=== PATIENT | male | born 1990 | race Caucasian/White ===

== ENCOUNTER 2021-09-16 10:22 | Outpatient (CLI) | payer BC | END 2021-09-16 10:23 | disposition home or self-care (01) | LOC: LABBT 10:22 | PROVIDERS: ATTEND Internal Medicine Gastroenterology | DX: R13.10 Dysphagia, unspecified (principal); Z20.822 Contact with and (suspected) exposure to COVID-19 | CPT/HCPCS: U0003; U0005 ==

== ENCOUNTER 2021-09-21 07:33 | Day surgery (SDC) | payer BC ==
[2021-09-17 12:27] VITALS: BMI 23.0
[2021-09-21] MEDS ORDERED: Fentanyl 100 MCG/2 ML VIAL ONE (11:05)
== END 2021-09-21 12:13 | disposition home or self-care (01) ==
LOC: SDC 07:33
PROVIDERS: ATTEND Internal Medicine Gastroenterology
DX: K29.50 Unspecified chronic gastritis without bleeding (principal); K20.0 Eosinophilic esophagitis; K25.9 Gastric ulcer, unspecified as acute or chronic, without hemorrhage or perforation; F17.220 Nicotine dependence, chewing tobacco, uncomplicated; F17.290 Nicotine dependence, other tobacco product, uncomplicated
CPT/HCPCS: 88305; 88312; J3010